=== PATIENT | female | born 1955 | race African-American/Black ===

== ENCOUNTER → 2017-12-09 | Outpatient (CLI) | payer BC ==
--- NOTE | 2017-12-09 12:54 | RAD ---
Thyroid ultrasound, 12/09/2017: HISTORY: Abnormal thyroid labs, enlarged thyroid gland The right lobe of the gland measures 3.7 x 1.6 x 1.6 cm while the left lobe of the gland measures 3.2 x 1.2 x 1.0 cm. The thyroid echo pattern is mildly heterogeneous. A faint 6 mm hypoechoic nodule is noted posteriorly in the lower pole of the gland. No calcifications or highly suspicious features are seen. No other discrete thyroid nodule is evident. IMPRESSION: 1. Mildly heterogeneous thyroid gland. 2. Small nonspecific right thyroid nodule. Electronically signed by: Gilberto Doherty MD (12/09/2017 12:50 PM) [facility]
== END | disposition home or self-care (01) ==
LOC: US 10:44
PROVIDERS: ATTEND Nurse Practitioner Adult Health
DX: E04.1 Nontoxic single thyroid nodule (principal)
CPT/HCPCS: 76536

== ENCOUNTER 2020-08-25 10:59 | Emergency (ER) | payer BC, MEDICAID, MEDICARE ==
[~2020-08-25] VITALS: Ht 149.9 cm; Wt 53.1 kg
[2020-08-25 11:05] VITALS: BP 154/84
--- NOTE | 2020-08-25 11:39 | PHYS DOC ---
Past History Past Medical History: No Pertinent History Alcohol Use: None General Adult EDM: Chief Complaint: FOOT INJURY PAIN HPI: HPI: Patient is a 65-year-old female coming in for evaluation of right foot injury. 5 days ago patient had a TV stand with a hit on top of it fall over onto her foot and nevarez. Patient states she had slight induration which is improved now but had pain and swelling of her distal dorsal foot. Denies any lacerations or bleeding. Patient states she has been elevating and using a cane to ambulate. Taking ibuprofen for pain. Came in today because she is concerned it is broken says not getting better. Does not take any blood thinners. States she otherwise has been well. Review of Systems: Review of Systems: All other systems within normal limits except for as noted in the HPI Allergies: Allergies: Allergies Coded Allergies Type Severity Reaction Last Updated Verified No Known Drug Allergies 08/25/20 No Physical Exam: PE: Constitutional: Well developed, well nourished, no acute distress, non-toxic appearance. [] HENT: Normocephalic, atraumatic, bilateral external ears normal, nose normal. [ ] Eyes: PERRLA, conjunctiva normal, no discharge. [] Neck: No rigidity, supple, no stridor. [] Cardiovascular: Regular rate and rhythm, brisk cap refill [] Lungs & Thorax: Non labored symmetric respirations, no tachypnea or respiratory distress [] Abdomen: Soft, nondistended. Skin: Warm, dry, no erythema, no rash. [] Back: Unremarkable Extremities: No deformities, range of motion grossly intact, no lower extremity edema [] Neurologic: Alert and oriented X 3, no focal deficits noted. [] Psychologic: Affect normal, judgement normal, mood normal. [] Current Patient Data: Vital Signs: Vital Signs Date Time Temp Pulse Resp B/P (MAP) Pulse Ox O2 Delivery O2 Flow Rate FiO2 08/25/20 11:05 97.9 18 154/84 (107) 98 Room Air EKG: EKG: [] Radiology/Procedures: Radiology/Procedures: AP, lateral, and oblique views of the right foot were obtained. History: Reason: crush injury, pain and swelling / Spl. Instructions: / History: Comparison: none. There are fractures of the distal second and third diaphysis of the metatarsals. On the lateral view at least one of these, likely the second appears comminuted with an elongated bony fragment measuring 1.5 cm on the dorsal aspect of the fractures. There is associated subcutaneous swelling. [] Heart Score: C/O Chest Pain: No Risk Factors: Risk Factors: DM, Current or recent (<one month) smoker, HTN, HLP, family history of CAD, obesity. Risk Scores: Score 0 - 3: 2.5% MACE over next 6 weeks - Discharge Home Score 4 - 6: 20.3% MACE over next 6 weeks - Admit for Clinical Observation Score 7 - 10: 72.7% MACE over next 6 weeks - Early Invasive Strategies Course & Med Decision Making: Course & Med Decision Making Pertinent Labs and Imaging studies reviewed. (See chart for details) [] Dragon Disclaimer: Dragon Disclaimer: This electronic medical record was generated, in whole or in part, using a voice recognition dictation system. Departure Departure: Impression: Primary Impression: Fracture of metatarsal of right foot, closed Disposition: 01 DC HOME SELF CARE/HOMELESS Condition: STABLE Referrals: SIOBHAN WILLETT MD (PCP) [facility] Patient Instructions: Foot Fracture Additional Instructions: Take Tylenol as needed for pain, avoid ibuprofen or other NSAIDs. LUISITO MITCHELL MD Aug 25, 2020 11:39
--- NOTE | 2020-08-25 11:44 | RAD ---
AP, lateral, and oblique views of the right foot were obtained. History: Reason: crush injury, pain and swelling / Spl. Instructions: / History: Comparison: none. There are fractures of the distal second and third diaphysis of the metatarsals. On the lateral view at least one of these, likely the second appears comminuted with an elongated bony fragment measuring 1.5 cm on the dorsal aspect of the fractures. There is associated subcutaneous swelling. Electronically signed by: Johnathan Ulloa MD (08/25/2020 11:42 AM) [id number]
== END 2020-08-25 12:05 | disposition home or self-care (01) ==
LOC: ER 10:59
DX: S92.321A Displaced fracture of second metatarsal bone, right foot, initial encounter for closed fracture (principal); S92.331A Displaced fracture of third metatarsal bone, right foot, initial encounter for closed fracture; R60.0 Localized edema; W18.09XA Striking against other object with subsequent fall, initial encounter; Y93.89 Activity, other specified; Y92.89 Other specified places as the place of occurrence of the external cause; Y99.8 Other external cause status
CPT/HCPCS: 73630; 99283

== ENCOUNTER → 2020-09-28 | Outpatient (CLI) | payer MEDICAID, MEDICARE ==
--- NOTE | 2020-09-30 23:07 | RAD ---
DATE: 09/28/2020 EXAM: DIGITAL SCREEN BILAT W/CAD HISTORY: Screening COMPARISON: 02/03/2014, 02/22/2015, 03/13/2016 This study was interpreted with the benefit of Computerized Aided Detection (CAD). Breast Density: SCATTERED The breast parenchyma shows scattered fibroglandular densities. Breast parenchyma level B. FINDINGS: No suspicious mass, calcifications, or architectural distortion. IMPRESSION: No evidence of malignancy. BI-RADS CATEGORY: 1 NEGATIVE RECOMMENDED FOLLOW-UP: 12M 12 MONTH FOLLOW-UP PQRS compliance statement: Patient information was entered into a reminder system with a target due date for the next mammogram. Mammography is a sensitive method for finding small breast cancers, but it does not detect them all and is not a substitute for careful clinical examination. A negative mammogram does not negate a clinically suspicious finding and should not result in delay in biopsying a clinically suspicious abnormality. "Our facility is accredited by the [employer] Mammography Program."
== END ==
LOC: MAMMO 09:24
PROVIDERS: ATTEND Family Medicine
DX: Z12.31 Encounter for screening mammogram for malignant neoplasm of breast (principal)
CPT/HCPCS: 77067